=== PATIENT | female | born 1955 | race Caucasian/White ===

== ENCOUNTER 2017-06-19 13:57 | Inpatient (IN) | payer BC ==
[~2017-06-19] VITALS: Ht 180.3 cm; Wt 81.2 kg
[~2017-06-19 13:57] MED LIST: CILOXAN 0.1 APPLICAT RIGHT EYE; HYDROCHLOROTH12.5 M3 PO; IBUPROFEN800 MG PO; LIPITOR10 MG PO; LISINOPRIL10 MG PO; PERCOCET 5/31 TABLET PO; SYNTHROID150 MCG PO; ZOFRAN ODT4 MG PO
[2017-06-19 14:43] LABS: HEMATOCRIT 35.8 % (36.0-46.0); HEMOGLOBIN 12.4 G/DL (11.9-15.5); MCH 30.8 PG (29.0-34.0); MCHC 34.6 G/DL (30.0-36.0); MCV 89.1 FL (83-99); PLATELET COUNT 203 K/uL (156-360); RBC DIS.WIDTH-CV 12.3 % (11.8-14.6); RBC DIS.WIDTH-SD 40.2 % (39-53); RED BLOOD COUNT 4.02 M/uL (3.80-5.20); WHITE BLOOD COUNT 5.7 K/uL (4.1-10.2)
[2017-06-19 14:51] LABS: CHLORIDE 101 mEq/L (99-109); POTASSIUM 3.9 mEq/L (3.7-5.4); SODIUM 137 mEq/L (136-147)
[2017-06-19 14:53] LABS: GLUCOSE 100 mg/dL (70-99)
[2017-06-19 14:57] LABS: CREATININE 0.9 mg/dL (0.6-1.3); GFR ESTIMATE (CALCULATED) > 59 mL/min/
[2017-06-19 14:58] LABS: UREA NITROGEN (BUN) 17 mg/dL (9-23)
[2017-06-19 15:05] LABS: TROP-I INTERPRETATION POSITIVE
[2017-06-19 15:06] LABS: TROPONIN-I 1.26 ng/mL (0.0-0.30)
[2017-06-19] MEDS ORDERED: ADULT ASPIRIN R81 MG PO (15:29)
[2017-06-19 15:50] LABS: INTER. NORMALIZED RATIO 1.2
[2017-06-19 15:53] LABS: PTT 29.3 SEC (25-37)
[2017-06-19 17:47] LABS: HDL CHOLESTEROL 38 MG/DL (Desirable>=50); LDL CHOLESTEROL 96 mg/dL (Desirable<100); NON-HDL CHOLESTEROL 125 mg/dL (Desirable<160); TOTAL CHOLESTEROL 163 mg/dL (Desirable<200); TRIGLYCERIDES 146 MG/DL (Normal: <150)
[2017-06-19 19:30] VITALS: BP 128/83
[2017-06-19 22:12] LABS: TROP-I INTERPRETATION POSITIVE; TROPONIN-I 1.54 ng/mL (0.0-0.30)
[2017-06-19 23:36] VITALS: BP 123/73
[2017-06-20 03:07] LABS: HEMATOCRIT 35.7 % (36.0-46.0); HEMOGLOBIN 12.2 G/DL (11.9-15.5); MCH 30.8 PG (29.0-34.0); MCHC 34.2 G/DL (30.0-36.0); MCV 90.2 FL (83-99); PLATELET COUNT 182 K/uL (156-360); RBC DIS.WIDTH-CV 12.4 % (11.8-14.6); RBC DIS.WIDTH-SD 41.1 % (39-53); RED BLOOD COUNT 3.96 M/uL (3.80-5.20); WHITE BLOOD COUNT 3.9 K/uL (4.1-10.2)
[2017-06-20 03:16] LABS: ALBUMIN 3.9 g/dL (3.2-4.8); CHLORIDE 101 mEq/L (99-109); POTASSIUM 4.2 mEq/L (3.7-5.4); SODIUM 139 mEq/L (136-147)
[2017-06-20 03:19] LABS: GLUCOSE 97 mg/dL (70-99); TOTAL PROTEIN 6.9 g/dL (6.4-8.3)
[2017-06-20 03:20] LABS: TOTAL BILIRUBIN 0.5 mg/dL (0.0-1.0)
[2017-06-20 03:22] LABS: ALKALINE PHOSPHATASE 79 IU/L (3-129); GFR ESTIMATE (CALCULATED) > 59 mL/min/
[2017-06-20 03:23] LABS: UREA NITROGEN (BUN) 16 mg/dL (9-23)
[2017-06-20 03:24] LABS: AST (GOT) 15 IU/L (2-34)
[2017-06-20 03:25] LABS: ALT (GPT) 10 IU/L (3-49)
[2017-06-20 03:29] LABS: TROP-I INTERPRETATION POSITIVE
[2017-06-20 03:32] LABS: TROPONIN-I 1.56 ng/mL (0.0-0.30)
[2017-06-20 03:38] VITALS: BP 112/71
[2017-06-20 09:05] VITALS: BP 133/74
[2017-06-20 12:37] VITALS: BP 103/59
[2017-06-20 14:32] LABS: TROP-I INTERPRETATION POSITIVE; TROPONIN-I 1.25 ng/mL (0.0-0.30)
[2017-06-20 15:24] VITALS: BP 112/59
[2017-06-20 16:14] LABS: INTER. NORMALIZED RATIO 1.1
[2017-06-20 16:16] LABS: PTT 56.9 SEC (25-37)
[2017-06-20 19:00] VITALS: BP 119/83
[2017-06-20 23:58] VITALS: BP 102/71
[2017-06-21 03:40] VITALS: BP 111/57
[2017-06-21 08:08] VITALS: BP 106/56; BP 134/65
[2017-06-21 11:08] VITALS: BP 107/65; BP 128/74
[2017-06-21 16:33] VITALS: BP 104/64
[2017-06-21 20:15] VITALS: BP 120/63
[2017-06-21 23:25] VITALS: BP 130/66
[2017-06-22 04:10] VITALS: BP 125/59
[2017-06-22 05:24] LABS: HEMATOCRIT 35.7 % (36.0-46.0); HEMOGLOBIN 11.9 G/DL (11.9-15.5); MCH 30.3 PG (29.0-34.0); MCHC 33.3 G/DL (30.0-36.0); MCV 90.8 FL (83-99); PLATELET COUNT 183 K/uL (156-360); RBC DIS.WIDTH-CV 12.6 % (11.8-14.6); RBC DIS.WIDTH-SD 41.2 % (39-53); RED BLOOD COUNT 3.93 M/uL (3.80-5.20); WHITE BLOOD COUNT 4.1 K/uL (4.1-10.2)
[2017-06-22 05:50] LABS: CHLORIDE 105 MEQ/L (99-109); CREATININE 1.1 MG/DL (0.6-1.3); GFR ESTIMATE (CALCULATED) 53 mL/min/; GLUCOSE 97 mg/dL (70-99); POTASSIUM 3.9 MEQ/L (3.7-5.4); SODIUM 137 MEQ/L (136-147); UREA NITROGEN (BUN) 23 mg/dL (9-23)
[2017-06-22 08:50] VITALS: BP 121/71
[2017-06-22 14:29] VITALS: BP 145/67
[2017-06-22 16:02] VITALS: BP 133/69
[2017-06-22 20:30] VITALS: BP 106/57
[2017-06-22 23:45] VITALS: BP 113/53
[2017-06-23 03:40] VITALS: BP 105/59
[2017-06-23 05:30] LABS: BASOPHIL (%) 0.9 % (0-1); EOSINOPHIL (%) 1.2 % (0-5); HEMATOCRIT 33.5 % (36.0-46.0); IMMATURE GRANULOCYTE (%) 0.3 % (0.0-0.7); LYMPHOCYTE (%) 23.3 % (15-42); LYMPHOCYTE COUNT 0.8 K/uL (1.0-2.8); MCHC 32.8 G/DL (30.0-36.0); MCV 91.3 FL (83-99); MONOCYTE (%) 11.2 % (3-12); MONOCYTE COUNT 0.4 K/uL (0-0.8); NEUTROPHIL (%) 63.1 % (45-76); NEUTROPHIL COUNT 2.2 K/uL (1.8-6.4); PLATELET COUNT 161 K/uL (156-360); RBC DIS.WIDTH-CV 12.6 % (11.8-14.6); RED BLOOD COUNT 3.67 M/uL (3.80-5.20); WHITE BLOOD COUNT 3.5 K/uL (4.1-10.2)
[2017-06-23 05:51] LABS: CHLORIDE 109 MEQ/L (99-109); GFR ESTIMATE (CALCULATED) > 59 mL/min/; GLUCOSE 91 mg/dL (70-99); POTASSIUM 4.5 MEQ/L (3.7-5.4); SODIUM 138 MEQ/L (136-147); UREA NITROGEN (BUN) 15 mg/dL (9-23)
[2017-06-23 09:18] VITALS: BP 115/60
[2017-06-23] MEDS ORDERED: NICOTINE PATCH1 EAC1 TD (11:05)
[2017-06-23] MEDS ORDERED: BRILINTA90 MG PO (11:05)
[2017-06-23] MEDS ORDERED: LOPRESSOR25 MG PO (11:06)
[2017-06-23] MEDS ORDERED: TYLENOL REGULA325 MG PO (11:06)
== END 2017-06-23 13:50 | disposition home or self-care (01) | DRG 249 ==
LOC: EME 13:57 → EDOF 15:59 → ENRESERV 15:59 → 4EAST 15:59 → ENRESERV 17:58 → 4EAST 19:19 → ENPENDDIS 06-23 → 4EAST 06-23 13:50
PROVIDERS: Hospitalist; Internal Medicine Cardiovascular Disease; Nurse Practitioner Family; Physician Assistant
PROC: 02703DZ Dilation of Coronary Artery, One Artery with Intraluminal Device, Percutaneous Approach (ICD-10-PCS; principal; 2017-06-22)
PROC: B2151ZZ Fluoroscopy of Left Heart using Low Osmolar Contrast (ICD-10-PCS; principal; 2017-06-22)
PROC: B41F1ZZ Fluoroscopy of Right Lower Extremity Arteries using Low Osmolar Contrast (ICD-10-PCS; principal; 2017-06-22)
PROC: 4A023N7 Measurement of Cardiac Sampling and Pressure, Left Heart, Percutaneous Approach (ICD-10-PCS; principal; 2017-06-22)
PROC: B2111ZZ Fluoroscopy of Multiple Coronary Arteries using Low Osmolar Contrast (ICD-10-PCS; principal; 2017-06-22)
DX: I21.4 Non-ST elevation (NSTEMI) myocardial infarction (principal); I10 Essential (primary) hypertension; E03.9 Hypothyroidism, unspecified; F17.210 Nicotine dependence, cigarettes, uncomplicated; E78.5 Hyperlipidemia, unspecified; G35 Multiple sclerosis; Z79.82 Long term (current) use of aspirin; Z79.899 Other long term (current) drug therapy; Z98.61 Coronary angioplasty status; Z88.5 Allergy status to narcotic agent
CPT/HCPCS: 71046; 80048; 80053; 80061; 83880; 84484; 85025; 85027; 85347; 85610; 85730; 93005; 99281; 99285; C1725; C1760; C1769; C1874; C1887; C1894; J0583; J0690; J1200; J1644; J2250; J3010; J7030